=== PATIENT | female | born 1955 | race African-American/Black ===

== ENCOUNTER 2021-01-28 09:56 | Emergency (ER) | payer MEDICARE ==
--- NOTE | 2021-01-28 10:43 | Event Note ---
ED Screening Note Date of service: 01/28/21 Time: 10:42 ED Screening Note: 65-year-old female patient with history of diabetes, hypertension, and hyperlipidemia presents to the emergency department with complaints of dizziness and nausea starting last night. No preceding fall, trauma, or injury. Patient is not anticoagulated. General: Awake, appropriately interactive, no acute distress. Neck: Supple. Full range of motion intact. Cardiovascular: Normal peripheral perfusion. Pulmonary: No respiratory distress. Patient is speaking normally without use of accessory muscles. Skin: No apparent rashes or lesions. Neurological: No facial asymmetry. Speech is clear. Follows commands. Patient is alert and oriented. Musculoskeletal: Moves all four extremities spontaneously with normal range of motion. Psych: Cooperative. Appropriate mood and affect. EKG reviewed in triage; no acute injury pattern. I have greeted and performed a focused rapid initial assessment of this patient. A comprehensive ED assessment and evaluation of the patient, analysis of all test results, and completion of the medical decision-making process will be conducted by additional ED providers. This initial assessment/diagnostic orders/clinical plan/treatment(s) is/are subject to change based on patients health status, clinical progression and re-assessment. Further treatment and workup at subsequent clinical provider's discretion. Patient/guardian urged not to elope from the ED as their condition may be serious if not clinically assessed and managed.
[2021-01-28 11:06] LABS: Basophils # (Auto) 0.1 K/mm3 (0.0-0.1); Eosinophils % (Auto) 0.6 % (0.0-4.3); Hematocrit 41.1 % (30.3-42.9); Hemoglobin 14.3 gm/dl (10.1-14.3); Lymphocytes # (Auto) 1.1 K/mm3 (1.2-5.4); Mean Corpuscular HGB Conc 35 % (30-34); Mean Corpuscular Volume 93 fl (79-97); Monocytes # (Auto) 0.5 K/mm3 (0.0-0.8); Monocytes % (Auto) 7.7 % (0.0-7.3); Platelet Count 252 K/mm3 (140-440); Red Blood Count 4.44 M/mm3 (3.65-5.03)
[2021-01-28 11:15] LABS: INR 0.97 (0.87-1.13)
[2021-01-28 11:16] LABS: Partial Thromboplastin Time 31.5 Sec. (24.2-36.6)
--- NOTE | 2021-01-28 11:16 | XRay Report ---
CHEST 2 VIEWS INDICATION / CLINICAL INFORMATION: Dizziness. COMPARISON: None available. FINDINGS: SUPPORT DEVICES: None. HEART / MEDIASTINUM: The heart size and pulmonary vasculature are normal. LUNGS / PLEURA: No significant pulmonary or pleural abnormality. No pneumothorax. ADDITIONAL FINDINGS: There is a small bone island in the humeral head. There is mild thoracic spondyl osis. IMPRESSION: No acute findings. Signer Name: Car Corrales MD Signed: 01/28/2021 11:11 AM Workstation Name: [id number]
[2021-01-28 11:26] LABS: Alanine Aminotransferase 11 units/L (7-56); Albumin 4.5 g/dL (3.9-5); Blood Urea Nitrogen 17 mg/dL (7-17); Calcium 9.1 mg/dL (8.4-10.2); Hemolysis Index 7
[2021-01-28 11:28] LABS: BUN/Creatinine Ratio 28
[2021-01-28] MEDS ORDERED: MECLIZINE 25 MG TAB PO ONE (12:09)
--- NOTE | 2021-01-28 12:13 | Emergency Department Report ---
ED Dizziness HPI - General Chief Complaint: Dizziness Stated Complaint: GENERAL WEAKNESS Time Seen by Provider: 01/28/21 11:51 Source: patient, family, EMS Mode of arrival: Stretcher Limitations: Language Barrier - History of Present Illness Initial Comments: Patient is 65-year-old female with history of hypertension diabetes. Patient presented to the ER complaining of dizziness that started this morning. Patient described her symptoms as room spinning especially when change position. Patient denied any headache, neck pain, chest pain or shortness of breath. No focal weakness numbness or tingling sensation. No speech difficulties. Patient also denied any visual changes or ataxia. Patient stated that she had a similar episode 1 year ago and she went to an urgent care and her symptoms resolved spontaneously. MD Complaint: dizziness -: Sudden, This morning Timing: sudden onset Description: sense of movement, "room spinning" History of Same: Yes History of Trauma: No Severity: moderate Improves With: remaining still Worsens With: movement Associated Symptoms: denies other symptoms - Related Data Allergies Allergy/AdvReac Type Severity Reaction Status Date / Time No Known Allergies Allergy Verified 01/28/21 13:39 ED Review of Systems ROS: Stated complaint: GENERAL WEAKNESS Other details as noted in HPI Comment: All other systems reviewed and negative Constitutional: denies: chills, fever Respiratory: denies: cough, shortness of breath, SOB with exertion Cardiovascular: denies: chest pain, palpitations Gastrointestinal: denies: abdominal pain, nausea, vomiting Musculoskeletal: denies: back pain Neurological: denies: headache, weakness ED Past Medical Hx - Past Medical History Previous Medical History?: Yes Hx Hypertension: Yes Hx Diabetes: Yes - Social History Smoking Status: Never Smoker Substance Use Type: None ED Physical Exam - General Limitations: Language Barrier General appearance: alert, in no apparent distress - Head Head exam: Present: atraumatic, normocephalic, normal inspection - Eye Eye exam: Present: normal appearance, PERRL - ENT ENT exam: Present: normal exam, normal orophraynx, mucous membranes moist - Neck Neck exam: Present: normal inspection. Absent: tenderness, meningismus - Respiratory Respiratory exam: Present: normal lung sounds bilaterally - Cardiovascular Cardiovascular Exam: Present: regular rate, normal rhythm, normal heart sounds - GI/Abdominal GI/Abdominal exam: Present: soft, normal bowel sounds. Absent: distended, ten derness, guarding, rebound, rigid, organomegaly, mass, bruit, pulsatile mass, hernia - Extremities Exam Extremities exam: Present: normal inspection, full ROM, normal capillary refill. Absent: tenderness, pedal edema, calf tenderness - Back Exam Back exam: Present: normal inspection, full ROM. Absent: CVA tenderness (R), CVA tenderness (L) - Neurological Exam Neurological exam: Present: alert, oriented X3, CN II-XII intact - Psychiatric Psychiatric exam: Present: normal mood - Skin Skin exam: Present: warm, intact, normal color ED Course Vital Signs 01/28/21 01/28/21 01/28/21 09:59 11:54 12:00 Temperature 98.5 F Pulse Rate 77 68 Pulse Rate [ Lying] Pulse Rate [ Sitting] Pulse Rate [ Standing] Respiratory 16 13 Rate Blood Pressure 164/71 143/53 151/55 Blood Pressure [Lying] Blood Pressure [Sitting] Blood Pressure [Standing] O2 Sat by Pulse 97 91 98 Oximetry 01/28/21 01/28/21 01/28/21 12:31 13:00 13:01 Temperature Pulse Rate 64 66 Pulse Rate [ 66 Lying] Pulse Rate [ 67 Sitting] Pulse Rate [ 64 Standing] Respiratory 12 12 Rate Blood Pressure 130/52 128/48 Blood Pressure 135/53 [Lying] Blood Pressure 130/52 [Sitting] Blood Pressure 131/49 [Standing] O2 Sat by Pulse 98 98 Oximetry ED Medical Decision Making - Lab Data Result diagrams: 01/28/21 10:52 01/28/21 10:52 - EKG Data -: EKG Interpreted by [facility] EKG shows normal: sinus rhythm Rate: normal - EKG Data Interpretation: no acute changes - Radiology Data Radiology results: report reviewed - Medical Decision Making Patient is 65-year-old female with history of hypertension diabetes. Patient presented to the ER complaining of dizziness that started this morning. Patient described her symptoms as room spinning especially when change position. Patient denied any headache, neck pain, chest pain or shortness of breath. No focal weakness numbness or tingling sensation. No speech difficulties. Patient also denied any visual changes or ataxia. Patient stated that she had a similar episode 1 year ago and she went to an urgent care and her symptoms resolved spontaneously. Patient daughter also stated that when she had the symptoms her blood pressure was spiking at 220/110. He stated that she usually take lisinopril but she stated that she has been stressed. Patient blood pressure is normal in the ER. Patient given meclizine. Labs reviewed and is unremarkable. EKG shows sinus rhythm with no ST elevation. CT brain is negative for acute finding. Patient stated that she is feeling much better and she is ready to go home. Patient advised to follow-up with her primary care physician in the next 2 to 3 days and to return to the ER she develop any new symptoms. Critical care attestation.: If time is entered above; I have spent that time in minutes in the direct care of this critically ill patient, excluding procedure time. ED Disposition Clinical Impression: Dizziness, Vertigo Disposition: DC-01 TO HOME OR SELFCARE Is pt being admited?: No Condition: Stable Instructions: Dizziness, [id number], Vertigo, Hypertension, Adult Referrals: ALEXANDRO VELA MD [Primary Care Provider] - 3-5 Days
--- NOTE | 2021-01-28 12:59 | Cat Scan Report ---
CT head/brain wo con INDICATION: Dizziness. TECHNIQUE: All CT scans at this location are performed using CT dose reduction for ALARA by means of automated e xposure control. COMPARISON: None available. FINDINGS: There is no evidence of hemorrhage, hydrocephalus, brain edema, or mass effect/mass lesion. There is overall normal brain formation and brain volume for the patient's age. Ventricular and cisternal/sulc al size is normal for age. The included paranasal sinuses and mastoid air cells are clear. The orbits appear unremarkable. IMPRESSION: 1. No acute intracranial abnormality. Signer Name: Juan Alberto Velasquez MD Signed: 01/28/2021 12:55 PM Workstation Name: [id number]
[2021-01-28 13:30] LABS: Bilirubin,Urine NEG (Negative); Blood,Urine NEG (Negative); Color,Urine Colorless (Yellow); Protein,Urine <15 mg/dL mg/dL (Negative); RBC,Urine < 1.0 /HPF (0.0-6.0); Urobilinogen,Urine < 2.0 mg/dL (<2.0)
[2021-01-28 13:33] LABS: WBC,Urine < 1.0 /HPF (0.0-6.0)
[2021-01-28 14:20] VITALS: BP 116/41
--- NOTE | 2021-01-29 21:42 | Electrocardiograph Report ---
[facility] Test Date: 2021-01-28 Test Time: 10:17:54 Pat Name: OTIS HARRIS Department: Room: Gender: F Conservation Worker: VIRGIL : 1955 Requested By: SHERRI JAIME Order Number: [id number] Reading MD: Live Walden Measurements Intervals [place] Rate: 71 P: 60 WA: 172 QRS: 76 QRSD: 86 T: 52 QT: 386 QTc: 420 Interpretive Statements Sinus rhythm No previous ECG available for comparison Electronically Signed On 01-29-2021 21:42:32 EDT by Live Walden
== END 2021-01-28 14:20 | disposition home or self-care (01) ==
LOC: ED 09:56
DX: R42 Dizziness and giddiness (principal); I10 Essential (primary) hypertension; E11.9 Type 2 diabetes mellitus without complications; Z79.899 Other long term (current) drug therapy; R79.1 Abnormal coagulation profile
CPT/HCPCS: 36415; 70450; 71046; 80053; 81001; 83735; 84484; 85025; 85610; 85730; 93005; 99285